=== PATIENT | female | born 1960 | race Caucasian/White ===

== ENCOUNTER → 2019-08-26 08:04 | Outpatient (CLI) | payer BC ==
--- NOTE | 2019-09-01 13:29 | EC ---
PATIENT:MALLORIE ZHU DATE OF SERVICE: 08/26/19 SEX: F MEDICAL RECORD: [id number] DATE OF : 60 [facility] AGE OF PATIENT: 58 ADMISSION DATE: 08/26/19 REFERRING PHYSICIAN: INTERPRETING PHYSICIAN: SHARON MAGUIRE MD ECHOCARDIOGRAM REPORT ECHO CHARGES 4 ECHO COMPLETE Date: 08/26/19 CLINICAL DIAGNOSIS: HEART MURMUR ECHOCARDIOGRAPHIC MEASUREMENTS (adult normal given) AC root (d.<3.7cm) 2.9 cm LV Septum d (<1.2 cm> 1.3 cm Valve Excursion 2.0 cm LV Septum (systole) 1.6 cm Left Atria (s.<4.0cm> 4.2 cm LVPW d(<1.2cm) 1.7 cm RV (d.<2.3cm) 3.1 cm LVPW (sytole) 1.9 cm LV diastole(<5.6CM) 4.6 cm MV E-F(>70mm/sec) cm LV systole 2.9 cm LVOT Diameter 1.9 cm MV exc.(>10mm) 1.4 cm Est.ejection fraction (50-75%) % DOPPLER: LVIT cm/sec A 76.0 cm/sec E 82.0 cm/sec LA cm/sec RVSP 29 mmHg LVOT 99 cm/sec AOP1/2T m/s Asc. 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 Macias TAPE# PACS Pericardial Effusion N DATE OF SERVICE: Adequate 2D, color flow, spectral Doppler, and M-Mode. Borderline LVH. LV internal dimension is normal. Wall motion is normal. EF is greater than or equal to 55%. Aortic valve is tricuspid. No evidence of stenosis by Doppler interrogation. Left atrium is minimally dilated at 4.2 cm. Mitral valve shows no prolapse. Trace MR. Right-sided chambers grossly normal. Trace TR. 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
== END | disposition home or self-care (01) ==
LOC: D.HCCECHO 08:04
PROVIDERS: ATTEND Internal Medicine Interventional Cardiology
DX: R01.1 Cardiac murmur, unspecified (principal)